=== PATIENT | female | born 1980 | race Caucasian/White ===

== ENCOUNTER 2016-04-18 06:07 | Inpatient (IN) | payer OTHER ==
--- NOTE | 2016-04-17 19:53 | History and Physical Report ---
History of Present Illness Date of examination: 04/17/16 Date of admission: 04/18/16 Chief complaint: pt presents to L & d for primary c/s secondary to transverse lie Past History Past Medical History: diabetes (on Glyburide,gestational thrombocytopenia), other (hx of depression) Past Surgical History: no surgical history - Obstetrical History Expected Date of Delivery: 04/23/16 Actual Gestation: 39 Week(s) 1 Day(s) : 5 Para: 4 Number of Living Children: 4 Medications and Allergies Active Meds: Active Medications Citric Acid/Sodium Citrate (Bicitra) 30 ml PO ONCE ONE Stop: 04/17/16 19:32 Famotidine (Pepcid) 20 mg IV ONCE ONE Stop: 04/17/16 19:32 Cefazolin Sodium (Ancef/Sterile Water 2 Gm/20 Ml) 20 mls @ 80 mls/hr IV PREOP NR PRN Reason: Protocol Lactated Ringer's (Lactated Ringers) 1,000 mls @ 2,250 mls/hr IV PREOP NR Stop: 04/18/16 20:27 Oxytocin/Sodium Chloride (Pitocin/Ns 20 Unit/1000ml Drip) 1,000 mls @ 125 mls/ hr IV TITR NR Lidocaine/Prilocaine (Emla) 1 applic TP ONCE PRN PRN Reason: for patel catheter insertion Metoclopramide HCl (Reglan) 10 mg IV ONCE ONE Stop: 04/17/16 19:32 Review of Systems All systems: negative - Physical Exam Breasts: Positive: deferred Cardiovascular: Regular rate, Normal S1, Normal S2 Abdomen: Positive: normal appearance, soft, normal bowel sounds. Negative: distention, tenderness Vulva: both: normal Vagina: Positive: normal moisture. Negative: discharge Cervix: Negative: lesion, discharge Uterus: Positive: normal size, normal contour Adnexa: both: normal Anus/Rectum: Positive: normal perianal skin, heme negative. Negative: rectal mass, hemorrhoids Extremities: Deep Tendon Reflex Grade: Normal +2 - Obstetrical FHR: auscultation normal Uterine Contraction Monitor Mode: External Cervical Dilatation: 0 Cervical Effacement Percentage: 0 Uterine Contraction Pattern: Absent Results All other labs normal. Assessment and Plan iup at term, transverse lie, diabetes Plan prepare for c/s
[2016-04-18] MEDS ORDERED: BICITRA PO ONE (06:30)
[2016-04-18] MEDS ORDERED: EMLA TP PRN (06:30)
[2016-04-18] MEDS ORDERED: ANCEF/STERILE WATER 2 GM/20 ML 20 ML IV NR (06:30)
[2016-04-18] MEDS ORDERED: PEPCID IV ONE (06:35)
[2016-04-18] MEDS ORDERED: REGLAN IV ONE (06:45)
[2016-04-18 06:47] LABS: Basophils % (Auto) 0.9 % (0.0-1.8); Eosinophils % (Auto) 1.5 % (0.0-4.3); Hematocrit 35.8 % (30.3-42.9); Hemoglobin 12.3 gm/dl (10.1-14.3); Mean Corpuscular HGB Conc 34 % (30-34); Mean Corpuscular Hemoglobin 30 pg (28-32); Mean Corpuscular Volume 87 fl (79-97); Platelet Count 137 K/mm3 (140-440); Red Blood Count 4.12 M/mm3 (3.65-5.03); Red Cell Distribution Width 14.4 % (13.2-15.2); White Blood Count 7.4 K/mm3 (4.5-11.0)
[2016-04-18] MEDS ORDERED: LACTATED RINGERS 1,000 ML IV NR (07:00)
[2016-04-18] MEDS ORDERED: PITOCin/NS 20 UNIT/1000ML DRIP 1,000 ML IV NR (07:00)
--- NOTE | 2016-04-18 07:28 | Anesthesia Consultation ---
Anesthesia Consult and Med Hx Date of service: 04/18/16 - Airway Anesthetic Teeth Evaluation: Good ROM Head & Neck: Adequate Mental/Hyoid Distance: Adequate Mallampati Class: Class II Intubation Access Assessment: Probably Good - Pre-Operative Health Status Proposed Anesthetic Plan: Epidural, Spinal - Pulmonary Hx Asthma: No COPD: No Hx Pneumonia: No - Cardiovascular System Hx Hypertension: No - Central Nervous System Hx Seizures: No Hx Psychiatric Problems: No - Endocrine Hx Renal Disease: No Hx End Stage Renal Disease: No Hx Hypothyroidism: No Hx Hyperthyroidism: No - Hematic Hx Anemia: No Hx Sickle Cell Disease: No - Other Systems Hx Alcohol Use: No
--- NOTE | 2016-04-18 07:29 | Anesthesia Day of Surgery ---
Anesthesia Day of Surgery - Day of Surgery Patient Examined: Yes Patient H&P Reviewed: Yes Patient is NPO: Yes
[2016-04-18] MEDS ORDERED: MORPHINE ONE (07:47)
[2016-04-18] MEDS ORDERED: NACL 0.9% IR ONE (07:50)
[2016-04-18] MEDS ORDERED: WATER FOR IRRIG STERILE IR ONE (07:50)
[2016-04-18] MEDS ORDERED: NEO SYNEPHRINE/NS Syringe(OR USE) IV ONE (08:16)
[2016-04-18] MEDS ORDERED: BENADRYL IV PRN ×2 (08:30→16:13)
[2016-04-18] MEDS ORDERED: ZOFRAN IV PRN ×2 (08:30→11:02)
[2016-04-18] MEDS ORDERED: SODIUM CHLORIDE FLUSH SYRINGE 10 ML IV PRN (08:30)
[2016-04-18] MEDS ORDERED: TORADOL IV PRN ×2 (08:30→15:00)
[2016-04-18] MEDS ORDERED: DILAUDID IV PRN (08:30)
[2016-04-18] MEDS ORDERED: NARCAN 0.4 MG/1 ML IV PRN ×2 (09:00→11:02)
--- NOTE | 2016-04-18 09:31 | Procedure Note ---
OB Delivery Note - Delivery Date of Delivery: 04/18/16 Surgeon: ANAMIKA NICHOLSON Estimated blood loss: other (800ml) - Section Preop diagnosis: desires sterilization, other malpresentation Postop diagnosis: same section procedure: section, primary low transverse, bilateral tubal ligation Disposition: PACU Complications: none - A at 1 minute: 9 Gender: Male (wt 8-1, normal tubes and ovaries)
--- NOTE | 2016-04-18 09:35 | Operative Report ---
Operative Report Operative Report: Preoperative diagnoses- Intrauterine at 39 weeks, breech presentation , undesired ferility Postoperative diagnoses- same Procedure- primary low segment transverse section and clarence tubal ligation Surgeon- Dr. Becca Hernandez-Jaswant Anesthesia- Spinal/epidural Findings- live male infant wt 8-1, apgars 9 & 9, normal tubes and ovaries Estimated blood loss- 800ml Complications- none Instrument count- Correct Pathology specimens- Placenta- discarded, Portions of Right and Left Fallopian Tubes to pathology Patient was taken to the OR. Spinal/epidural anesthesia was instituted. Patient was then placed in the dorsolithotomy position and Chavarria catheter was placed. Patient was then returned to the supine position and prepped and draped in usual sterile fashion. Level of anesthesia was checked and found to be adequate. Pfannenstiel skin incision was made. The incision was extended through the subcutaneous tissues to the fascia. Which was incised transversely using Mayos and pickups with teeth. The fascia was from the underlying muscle using Kochers and Bovie cautery. The rectus muscle was then in the midline. The peritoneum was visualized, grasped with hemostats and opened using the Metzenbaum scissors. Upon entering the peritoneal cavity an jesus retractor was placed appropriately. A curvilinear incision was made with Metzenbaum scissors and a smooth pickup. A bladder flap was developed, a curvilinear incision was made in the lower uterine segment using a scalpel. The uterine cavity was entered bluntly with the surgeon's finger and the incision was enlarged. The Head of the infant was delivered . The mouth and nose were suctioned and the remainder of the body was delivered . The cord was doubly clamped and cut . was given to the waiting team. The cord blood was obtained. The placenta was then delivered manually. The uterus is cleaned with a moist wet lap tape. The first layer of the uterus is closed with 0 Vicryl running interlocking stitch. The second layer of the uterus was closed with a 0 Vicryl horizontal imbricating stitch. The pelvic gutters were cleaned . Next the adnexa were examined and found to be normal. Clarence tubal liagtion was performed using 0 chromic suture bilaterally. Next the fascia was closed with 0 Vicryl running suture. Next the subcutaneous tissue was reapproximated with 3-0 Vicryl running suture. The skin was reapproximated with a 4-0 Vicryl subcuticular stitch. Mastisol and Steri-Strips were placed . A pressure dressing was applied. The patient was transferred to recovery room in stable condition.
--- NOTE | 2016-04-18 09:38 | Ultrasound Report ---
Limited OB ultrasound: There is a single living intrauterine gestation in breech position. The scalloper notes the head to the maternal right with the legs bent at cervix. The heart rate is 117 beats per minute. The patient's physician was present at time of imaging. No other information.
[2016-04-18] MEDS ORDERED: SODIUM CHLORIDE FLUSH SYRINGE 10 ML IV NR (11:02)
[2016-04-18] MEDS ORDERED: MYLICON PO PRN (11:02)
[2016-04-18] MEDS ORDERED: PITOCin/NS 20 UNIT/1000ML DRIP 1,000 ML IV SCH (11:02)
[2016-04-18] MEDS ORDERED: TUCKS PAD TP PRN (11:02)
[2016-04-18] MEDS ORDERED: MORPHINE IV PRN (11:02)
[2016-04-18] MEDS ORDERED: MILK OF MAGNESIA PO PRN (11:02)
[2016-04-18] MEDS ORDERED: MOTRIN PO PRN (11:02)
[2016-04-18] MEDS ORDERED: D5LR 1,000 ML IV SCH (11:02)
[2016-04-18] MEDS ORDERED: LANSINOH TP PRN (11:02)
[2016-04-18] MEDS: ANCEF/NS 1 GM/50 ML 50 ML IV SCH ×2 (16:12→23:28)
[2016-04-18 20:26] LABS: Hematocrit 27.6 % (30.3-42.9); Hemoglobin 9.6 gm/dl (10.1-14.3)
[2016-04-18] MEDS: DIABETA PO SCH (23:28)
[2016-04-19] MEDS ORDERED: BOOSTRIX IM ONE (06:00)
--- NOTE | 2016-04-19 08:01 | Progress Note ---
Assessment and Plan pod 1 s/p primary c/s. doing well.encourage ambulation Subjective - Subjective Date of service: 04/19/16 Principal diagnosis: pod 1 s/p primary c/s Interval history: routine post op care Patient reports: appetite normal, voiding normally, pain well controlled [place]: doing well Objective - Vital Signs Latest vital signs: Vital Signs Temp Pulse Pulse Resp BP BP Pulse Ox 04/19/16 04:45 99.1 F 81 20 92/53 04/19/16 00:45 99 F 83 20 87/51 04/18/16 20:30 99.4 F 72 20 116/65 04/18/16 17:16 98.1 F 64 18 105/50 04/18/16 10:30 97.9 F 68 20 104/57 04/18/16 10:20 98.1 F 67 12 100/59 100 04/18/16 10:05 63 12 96/54 100 04/18/16 09:50 61 13 98/57 100 04/18/16 09:40 61 12 96/56 100 04/18/16 09:35 59 L 13 96/55 100 04/18/16 09:30 62 12 103/52 100 04/18/16 09:25 97.7 F 63 12 98/54 100 Intake and Output 04/18/16 04/19/16 04/19/16 22:59 06:59 14:59 Intake Total 1040 490 Output Total 640 Balance 400 490 Intake: IV 800 250 Ancef/Ns 1 gm/50 ml 50 ml 50 50 @ 100 mls/hr IV Q8H MYA Rx#:[id number] D5lr 1,000 ml @ 125 mls/ 750 200 hr IV DIRECT MYA Rx#: [id number] Oral 240 Intake, Free Water 240 Output: Urine 640 Indwelling Catheter 640 Other: Total, Intake Amount 120 Total, Output Amount 400 # Voids Void 1 1 - Exam Breasts: Present: deferred Cardiovascular: Present: Regular rate, Normal S1, Normal S2 Lungs: Present: Clear to auscultation Abdomen: Present: normal appearance, soft Vulva: both: normal Uterus: Present: normal, firm Extremities: Present: normal Incision: Present: normal, dry, intact - Labs Labs: Abnormal lab results 04/18/16 04/18/16 Range/Units 20:00 20:28 Hgb 9.6 L (10.1-14.3) gm/dl Hct 27.6 L D (30.3-42.9) % POC Glucose 171 H (70-105)
[2016-04-19] MEDS: DIABETA PO SCH (08:11)
[2016-04-19] MEDS: FEOSOL PO SCH ×2 (09:57→21:12)
[2016-04-19] MEDS: PERCOCET 5/325 PO PRN ×3 (10:01→23:54)
[2016-04-20] MEDS: DIABETA PO SCH (07:15)
--- NOTE | 2016-04-20 09:10 | Progress Note ---
Assessment and Plan pod 2 s/p primary c/s and btl. plan- d/c home tomorrow am Subjective - Subjective Date of service: 04/20/16 Principal diagnosis: pod 2 s/p primary c/s Interval history: routine post op care Patient reports: appetite normal, voiding normally, pain well controlled : doing well Objective - Vital Signs Latest vital signs: Vital Signs Temp Pulse Pulse Resp BP BP 04/20/16 00:00 98.2 F 85 18 109/63 04/19/16 16:35 20 04/19/16 16:06 98.8 F 95 H 16 97/56 04/19/16 10:01 20 Intake and Output 04/19/16 04/20/16 04/20/16 22:59 06:59 14:59 Intake Total 1030 Balance 1030 Intake: Oral 1030 Other: Total, Intake Amount 550 # Voids Void 1 - Exam Breasts: Present: deferred Cardiovascular: Present: Regular rate, Normal S1, Normal S2 Lungs: Present: Clear to auscultation Abdomen: Present: normal appearance, soft Vulva: both: normal Uterus: Present: normal, firm Extremities: Present: normal Incision: Present: normal, dry, intact - Labs Labs: Abnormal lab results 04/19/16 04/19/16 04/19/16 Range/Units 10:38 17:16 21:19 POC Glucose 49 L 107 H 107 H (70-105)
--- NOTE | 2016-04-20 09:11 | Discharge Summary ---
Providers - Providers Date of Admission: 04/18/16 06:07 Date of discharge: 04/21/16 Attending physician: ANAMIKA NICHOLSON Primary care physician: ANAMIKA NICHOLSON Hospitalization Reason for admission: section Delivery: Procedure: bilateral tubal ligation, primary low transverse Procedure details: c/s for breech presentation and btl Episiotomy: none Laceration: none Incision: normal, intact Other procedures: tubal ligation complications: none Discharge diagnosis: IUP at term delivered [place] baby: male Hospital course: routine pp care Condition at discharge: Good Disposition: DISCHARGED TO HOME OR SELFCARE - Discharge Diagnoses (1) Status post primary low transverse section Status: Acute (2) Type 2 diabetes mellitus affecting , antepartum Status: Acute Plan - Discharge Medications Prescriptions: Ferrous Sulfate [Feosol 325 MG tab] 325 mg PO BID #60 tablet Ibuprofen [Motrin 800 MG tab] 800 mg PO Q8HR PRN #30 tablet PRN Reason: Pain glyBURIDE [Diabeta] 2.5 mg PO DAILY #60 tablet oxyCODONE /ACETAMINOPHEN [Percocet 5/325] 1 tab PO Q6HR PRN #30 tablet PRN Reason: Pain - Provider Discharge Summary Activity: routine, no sex for 6 weeks, no heavy lifting 4 weeks, no strenuous exercise Diet: routine Instructions: routine Additional instructions: [] Smoking cessation referral if applicable(refer to patient education folder for contact #) [] Refer to [employer] Booklet Call your doctor immediately for: * Fever > 100.5 * Heavy vaginal bleeding ( >1 pad per hour) * Severe persistent headache * Shortness of breath * Reddened, hot, painful area to leg or breast * Drainage or odor from incision. * Keep incision clean and dry at all times and follow doctor's instructions regarding bathing/showering - Follow up plan Follow up: ANAMIKA NICHOLSON MD [Primary Care Provider] - 14 Days
[2016-04-20] MEDS: FEOSOL PO SCH (09:59)
[2016-04-20] MEDS ORDERED: TRIPLE ANTIBIOTIC TP SCH (14:00)
[2016-04-20] MEDS: PERCOCET 5/325 PO PRN (16:30)
[2016-04-20] MEDS ORDERED: DIABETA PO SCH (23:00)
[2016-04-21 07:50] VITALS: BP 94/49
[2016-04-21] MEDS: DIABETA PO SCH (12:29)
[2016-04-21] MEDS: FEOSOL PO SCH (12:30)
== END 2016-04-21 11:45 | disposition home or self-care (01) | DRG 765 ==
LOC: APU 06:07 → OB 10:50
PROVIDERS: ADMIT Specialist; ATTEND Specialist
PROC: 10D00Z1 Extraction of Products of Conception, Low, Open Approach (ICD-10-PCS; principal; 2016-04-18)
PROC: 0UL70ZZ Occlusion of Bilateral Fallopian Tubes, Open Approach (ICD-10-PCS; 2016-04-18)
DX: O32.1XX0 Maternal care for breech presentation, not applicable or unspecified (principal); O24.913 Unspecified diabetes mellitus in pregnancy, third trimester; O32.2XX0 Maternal care for transverse and oblique lie, not applicable or unspecified; O09.523 Supervision of elderly multigravida, third trimester; Z3A.39 39 weeks gestation of pregnancy; Z37.0 Single live birth
CPT/HCPCS: 36415; 76815; 82962; 85014; 85018; 85025; 86850; 86900; 86901; 88302; 90471; 90715; 99211; A6250; G0463; J0690; J1200; J1885; J2270; J2370; J2590; J2765; J7120; J7121